=== PATIENT | female | born 1985 | race Caucasian/White ===

== ENCOUNTER 2016-11-17 13:26 | Emergency (ER) | payer OTHER ==
--- NOTE | 2016-11-17 15:52 | ED ORDER SUMMARY ---
..... Patient: ANDREW BERGMAN OrderSheet [facility] VisitID: [id number] [address] [place] [address] 31y, F Registration Date/Time: 11/17/2016 ORDER SHEET Weight: 81.6 kg (estimated) Allergies: No Known Drug Allergy GENERAL ORDERS: CBC w Diff Urgent (13:37 11/17/2016 EKoroleva P.A.-C) (Ack 13:39 PWeiler ER Tech1) (15:34 HKone R.N.) CMP Urgent (13:37 11/17/2016 EKoroleva P.A.-C) (Ack 13:39 PWeiler ER Tech1) (13:42 PWeiler ER Tech1) UA-Culture if indicated Urgent (13:37 11/17/2016 EKoroleva P.A.-C) (Ack 13:39 PWeiler ER Tech1) (15:34 HKone R.N.) Urine Urgent (13:37 11/17/2016 EKoroleva P.A.-C) (Ack 13:39 PWeiler ER Tech1) (15:34 HKone R.N.) Urine Drug Screen Urgent (13:37 11/17/2016 EKoroleva P.A.-C) (Ack 13:39 PWeiler ER Tech1) (15:34 HKone R.N.) Ethyl Alcohol Urgent (13:37 11/17/2016 EKoroleva P.A.-C) (Ack 13:39 PWeiler ER Tech1) (15:34 HKone R.N.) Lipase Urgent (13:37 11/17/2016 EKoroleva P.A.-C) (Ack 13:39 PWeiler ER Tech1) (15:34 HKone R.N.) MEDICATION ORDERS: IV FLUIDS: IV NS : initial bolus 1000 mL (1000 mL/hr), then 1000 mL/hr for X1 (NOW); Elie (13:37 11/17/2016 EKoroleva P.A.-C) (13:54 HKone R.N.) Zofran IV 4 mg (NOW) (13:37 11/17/2016 Edwar Betancourt) (Ack 13:54 HKone R.N.) (13:59 HKone R.N.) Ativan IV 1 mg (HIGH ALERT MEDICATION, NOW) (16:02 11/17/2016 Edwar Betancourt) (Ack 16:03 HKone R.N.) (16:09 HKone R.N.) ORDER SHEET NOTES: [Electronically signed by Julissa Pastrana R.N. (16:28 11/17/2016)] [Electronically signed by Karen Ortega P.A.-C (16:40 11/17/2016)] [Electronically locked/signed by Julissa Pastrana R.N. (16:28 11/17/2016)]
--- NOTE | 2016-11-17 15:52 | ED CLINICAL REPORT ---
Clinical Report - Physicians/Mid Levels Located Within [facility] [address] [place] [address] 11/17/2016 13:30 Patient: ANDREW BERGMAN Time Seen: 13:37 Apr 17 2016. Arrived- By ambulance. Historian- patient and EMS personnel. HISTORY OF PRESENT ILLNESS Chief Complaint: NAUSEA and VOMITING. This started 3 days and is still present. No loss of appetite or weight loss. (patient presents with nausea, some sore throat feeling off, reports she has withdrawal's. Has been drinking heavily over the last 3 days with decreased appetite and hydration. Patient usually also drinks a few drinks daily. Drinking tequila and hard alcohol this weekend, multiple bottles.). REVIEW OF SYSTEMS No fever, sore throat, sinus drainage, cough or difficulty breathing. No nausea, vomiting, diarrhea or chills. No difficulty with ambulation. All systems otherwise negative, except as recorded above. SOCIAL HISTORY Never smoker. Heavy alcohol use; consumes liquor daily and wine daily. 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 History of drug use: marijuana. Not an IV drug user. ADDITIONAL NOTES The nursing notes have been reviewed. PHYSICAL EXAM Vital Signs: 11/17/2016 13:15 BP: 145/91. HR: 107. RR: 18. O2 saturation: 100%. Temp: 98.3 F. Pain level now: 0/10. Appearance: Alert. No mild distress. ENT: Ears normal. Nose normal. Pharynx normal. No nasal discharge. Neck: Normal inspection. No carotid bruit. CVS: Normal heart rate and rhythm. Heart sounds normal. Respiratory: No respiratory distress. Breath sounds normal. Abdomen: No visible injury. Soft. Bowel sounds normal. No abdominal tenderness. The bowel sounds are not abnormal. Skin: Skin warm. Normal skin color. Neuro: Oriented X 3. LABS, X-RAYS, AND EKG Laboratory Tests: UA-Culture if indicated: (BERENICE: 11/17/2016 15:05) ( MsgRcvd 11/17/2016 15:31) Final results Test Result Flag Units (Reference) URINE COLOR YELLOW URINE APPEARANCE CLEAR URINE GLUCOSE NEGATIVE (NEGATIVE) URINE BILIRUBIN NEGATIVE (NEGATIVE) URINE KETONE 2+ (NEGATIVE) URINE SPECIFIC GRAVITY 1.010 (1.010-1.030) URINE PH 6.5 (5.0-8.0) URINE PROTEIN NEGATIVE (NEGATIVE) URINE UROBILINOGEN 0.2 EU/dL (0.2-1.0) URINE NITRITE NEGATIVE (NEGATIVE) URINE BLOOD TRACE-LYSED (NEGATIVE) URINE LEUK ESTERASE NEGATIVE (NEGATIVE) URINE RBC RARE rbc/hpf (0-1) URINE WBC 0-1 wbc/hpf (0-1) URINE EPITHELIAL CELLS 0-1 EPI/hpf (0-5) URINE BACTERIA TRACE (<1+) (NONE SEEN) URINE COMMENT CULT NOT INDICATED URINE CULTURES ARE SET-UP BASED ON THE FOLLOWING CRITERIA:POSITIVE NITRITEPOSITIVE LEUKOCYTE ESTERASEGREATER THAN 10 WHITE BLOOD CELLSMODERATE (2+) OR GREATER BACTERIA Urine: (BERENICE: 11/17/2016 15:05) ( [facility] 11/17/2016 15:21) Final results Test Result Flag Units (Reference) URINE NEGATIVE CBC w Diff: (BERENICE: 11/17/2016 13:30) ( [facility] 11/17/2016 14:04) Final results Test Result Flag Units (Reference) WHITE BLOOD COUNT 6.9 K/uL (4.5-11.5) RED BLOOD COUNT 4.55 M/uL (4.00-5.20) HEMOGLOBIN 12.9 gm/dL (12.0-16.0) HEMATOCRIT 39.2 % (36.0-46.0) MEAN CELL VOLUME 86 fL (80-100) MEAN CORPUSCULAR HGB 28 pg (26-34) MEAN CORPUSCULAR HGB CONC 33 g/dL (31-37) RED CELL DISTRIBUTION WIDTH 15.2 H % (11.6-14.8) PLATELET COUNT 280 K/uL (150-400) NEUTROPHIL % 76.0 H % (50-75) LYMPH % 16.6 L % (25-40) MONO % 5.8 % (3-14) EOSINOPHIL % 0.8 % (0-4) BASOPHIL % 0.8 % (0-2) Urine Drug Screen: (BERENICE: 11/17/2016 15:05) ( MsgRcvd 11/17/2016 15:27) Final results Test Result Flag Units (Reference) AMPHETAMINE/METHAMPHETAMINE NEGATIVE (NEGATIVE) BARBITURATE NEGATIVE (NEGATIVE) BENZODIAZEPINE NEGATIVE (NEGATIVE) CANNABINOID NEGATIVE (NEGATIVE) COCAINE NEGATIVE (NEGATIVE) ECSTASY NEGATIVE (NEGATIVE) METHADONE NEGATIVE (NEGATIVE) OPIATE NEGATIVE (NEGATIVE) The urine drug screen is a qualitative screening test fordrug overdose and abuse. All screen results should beconsidered as presumptive.Drugs screened for are as follows:BenzodiazepinesCocaineAmphetamines/MetamphetaminesTHC (Tetrahydrocannabinol)OpiatesBarbituratesEcstasyMethadonePositive results are unconfirmed. For confirmation, notifythe lab for the specimen to be sent to the reference lab.All confirmations must be performed by a differentmethodology.The ingestion of natural herbal and plant productscontaining Ephedra/Ephedra metabolites can produce in urineone or more substances capable of cross reacting withamphetamine/methamphetamine immunoassays. These testsprovide a preliminary result only. A more specificalternative chemical method must be used to obtain aconfirmed analytical result. CMP: (BERENICE: 11/17/2016 13:30) ( MsgRcvd 11/17/2016 14:02) Final results Test Result Flag Units (Reference) GLUCOSE 104 mg/dL (70-110) BUN 11 mg/dL (7-18) CREATININE 1.0 mg/dL (0.6-1.3) Estimated GFR >60 mL/min Estimated GFR- >60 mL/min Note: Persistent reduction over 3 months in eGFR<60 mL/min/1.73 m2 defines CKD. Patients with eGFR values>=60 mL/min/1.73 m2 may also have CKD if evidence ofpersistent proteinuria. Additional information may be foundat www.kidney.org. SODIUM 141 mmol/L (136-145) POTASSIUM 3.6 mmol/L (3.5-5.1) CHLORIDE 105 mmol/L (98-107) CARBON DIOXIDE 25 mmol/L (21-32) CALCIUM 9.1 mg/dL (8.5-10.1) TOTAL PROTEIN 7.6 g/dL (6.4-8.2) ALBUMIN 3.8 g/dL (3.3-5.0) BILIRUBIN, TOTAL 0.7 mg/dL (0.0-1.0) ALKALINE PHOSPHATASE 57 U/L (46-116) AST (SGOT) 122 H U/L (15-37) ALT (SGPT) 109 H U/L (12-78) LIPASE 75 U/L (73-393) ETHYL ALCOHOL <3 L mg/dL (3-10) . PROGRESS AND PROCEDURES Course of Care: patient here in the ear is very stable. No emesis. No tremors, no signs of seizure. Patient is with history of alcohol. Given options nerves II counseling, has an appointment tomorrow she reports. Given a work note. Given small quantity of prescription for benzo. Family at bedside. Signs of dehydration, otherwise electrolytes are stable. She was rehydrated here in the ER with 2 L of fluid. Patient is stable. Symptoms better. Patient/family counseled. Disposition: Discharged. CLINICAL IMPRESSION Mild dehydration Elevated LFT. INSTRUCTIONS Do not work today. Warnings: Further evaluation is necessary. Prescription Medications: Zofran (orally disintegrating tablets) 4 mg: take 1 orally every 6 hours for 3 days as needed for nausea. Dispense ten (10). No refill. Substitution is permissible. Librium 10 mg: take 1 orally every 8 hours for 3 days as needed for anxiety. Dispense ten (10). No refill. Substitution is permissible. (Electronically signed by Karen Ortega P.A.-C 11/17/2016 16:40)
--- NOTE | 2016-11-17 15:52 | ED CLINICAL REPORT ---
Clinical Report - Physicians/Mid Levels [facility] [address] [place] [address] 11/17/2016 13:30 Patient: ANDREW BERGMAN Time Seen: 13:37 Apr 17 2016. Arrived- By ambulance. Historian- patient and EMS personnel. HISTORY OF PRESENT ILLNESS Chief Complaint: NAUSEA and VOMITING. This started 3 days and is still present. No loss of appetite or weight loss. (patient presents with nausea, some sore throat feeling off, reports she has withdrawal's. Has been drinking heavily over the last 3 days with decreased appetite and hydration. Patient usually also drinks a few drinks daily. Drinking tequila and hard alcohol this weekend, multiple bottles.). REVIEW OF SYSTEMS No fever, sore throat, sinus drainage, cough or difficulty breathing. No nausea, vomiting, diarrhea or chills. No difficulty with ambulation. All systems otherwise negative, except as recorded above. SOCIAL HISTORY Never smoker. Heavy alcohol use; consumes liquor daily and wine daily. 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 History of drug use: marijuana. Not an IV drug user. ADDITIONAL NOTES The nursing notes have been reviewed. PHYSICAL EXAM Vital Signs: 11/17/2016 13:15 BP: 145/91. HR: 107. RR: 18. O2 saturation: 100%. Temp: 98.3 F. Pain level now: 0/10. Appearance: Alert. No mild distress. ENT: Ears normal. Nose normal. Pharynx normal. No nasal discharge. Neck: Normal inspection. No carotid bruit. CVS: Normal heart rate and rhythm. Heart sounds normal. Respiratory: No respiratory distress. Breath sounds normal. Abdomen: No visible injury. Soft. Bowel sounds normal. No abdominal tenderness. The bowel sounds are not abnormal. Skin: Skin warm. Normal skin color. Neuro: Oriented X 3. LABS, X-RAYS, AND EKG Laboratory Tests: UA-Culture if indicated: (BERENICE: 11/17/2016 15:05) ( MsgRcvd 11/17/2016 15:31) Final results Test Result Flag Units (Reference) URINE COLOR YELLOW URINE APPEARANCE CLEAR URINE GLUCOSE NEGATIVE (NEGATIVE) URINE BILIRUBIN NEGATIVE (NEGATIVE) URINE KETONE 2+ (NEGATIVE) URINE SPECIFIC GRAVITY 1.010 (1.010-1.030) URINE PH 6.5 (5.0-8.0) URINE PROTEIN NEGATIVE (NEGATIVE) URINE UROBILINOGEN 0.2 EU/dL (0.2-1.0) URINE NITRITE NEGATIVE (NEGATIVE) URINE BLOOD TRACE-LYSED (NEGATIVE) URINE LEUK ESTERASE NEGATIVE (NEGATIVE) URINE RBC RARE rbc/hpf (0-1) URINE WBC 0-1 wbc/hpf (0-1) URINE EPITHELIAL CELLS 0-1 EPI/hpf (0-5) URINE BACTERIA TRACE (<1+) (NONE SEEN) URINE COMMENT CULT NOT INDICATED URINE CULTURES ARE SET-UP BASED ON THE FOLLOWING CRITERIA:POSITIVE NITRITEPOSITIVE LEUKOCYTE ESTERASEGREATER THAN 10 WHITE BLOOD CELLSMODERATE (2+) OR GREATER BACTERIA Urine: (BERENICE: 11/17/2016 15:05) ( [facility] 11/17/2016 15:21) Final results Test Result Flag Units (Reference) URINE NEGATIVE CBC w Diff: (BERENICE: 11/17/2016 13:30) [facility] Final results Test Result Flag Units (Reference) WHITE BLOOD COUNT 6.9 K/uL (4.5-11.5) RED BLOOD COUNT 4.55 M/uL (4.00-5.20) HEMOGLOBIN 12.9 gm/dL (12.0-16.0) HEMATOCRIT 39.2 % (36.0-46.0) MEAN CELL VOLUME 86 fL (80-100) MEAN CORPUSCULAR HGB 28 pg (26-34) MEAN CORPUSCULAR HGB CONC 33 g/dL (31-37) RED CELL DISTRIBUTION WIDTH 15.2 H % (11.6-14.8) PLATELET COUNT 280 K/uL (150-400) NEUTROPHIL % 76.0 H % (50-75) LYMPH % 16.6 L % (25-40) MONO % 5.8 % (3-14) EOSINOPHIL % 0.8 % (0-4) BASOPHIL % 0.8 % (0-2) Urine Drug Screen: (BERENICE: 11/17/2016 15:05) ( MsgRcvd 11/17/2016 15:27) Final results Test Result Flag Units (Reference) AMPHETAMINE/METHAMPHETAMINE NEGATIVE (NEGATIVE) BARBITURATE NEGATIVE (NEGATIVE) BENZODIAZEPINE NEGATIVE (NEGATIVE) CANNABINOID NEGATIVE (NEGATIVE) COCAINE NEGATIVE (NEGATIVE) ECSTASY NEGATIVE (NEGATIVE) METHADONE NEGATIVE (NEGATIVE) OPIATE NEGATIVE (NEGATIVE) The urine drug screen is a qualitative screening test fordrug overdose and abuse. All screen results should beconsidered as presumptive.Drugs screened for are as follows:BenzodiazepinesCocaineAmphetamines/MetamphetaminesTHC (Tetrahydrocannabinol)OpiatesBarbituratesEcstasyMethadonePositive results are unconfirmed. For confirmation, notifythe lab for the specimen to be sent to the reference lab.All confirmations must be performed by a differentmethodology.The ingestion of natural herbal and plant productscontaining Ephedra/Ephedra metabolites can produce in urineone or more substances capable of cross reacting withamphetamine/methamphetamine immunoassays. These testsprovide a preliminary result only. A more specificalternative chemical method must be used to obtain aconfirmed analytical result. CMP: (BERENICE: 11/17/2016 13:30) ( MsgRcvd 11/17/2016 14:02) Final results Test Result Flag Units (Reference) GLUCOSE 104 mg/dL (70-110) BUN 11 mg/dL (7-18) CREATININE 1.0 mg/dL (0.6-1.3) Estimated GFR >60 mL/min Estimated GFR- >60 mL/min Note: Persistent reduction over 3 months in eGFR<60 mL/min/1.73 m2 defines CKD. Patients with eGFR values>=60 mL/min/1.73 m2 may also have CKD if evidence ofpersistent proteinuria. Additional information may be foundat www.kidney.org. SODIUM 141 mmol/L (136-145) POTASSIUM 3.6 mmol/L (3.5-5.1) CHLORIDE 105 mmol/L (98-107) CARBON DIOXIDE 25 mmol/L (21-32) CALCIUM 9.1 mg/dL (8.5-10.1) TOTAL PROTEIN 7.6 g/dL (6.4-8.2) ALBUMIN 3.8 g/dL (3.3-5.0) BILIRUBIN, TOTAL 0.7 mg/dL (0.0-1.0) ALKALINE PHOSPHATASE 57 U/L (46-116) AST (SGOT) 122 H U/L (15-37) ALT (SGPT) 109 H U/L (12-78) LIPASE 75 U/L (73-393) ETHYL ALCOHOL <3 L mg/dL (3-10) . PROGRESS AND PROCEDURES Course of Care: patient here in the ear is very stable. No emesis. No tremors, no signs of seizure. Patient is with history of alcohol. Given options nerves II counseling, has an appointment tomorrow she reports. Given a work note. Given small quantity of prescription for benzo. Family at bedside. Signs of dehydration, otherwise electrolytes are stable. She was rehydrated here in the ER with 2 L of fluid. Patient is stable. Symptoms better. Patient/family counseled. Disposition: Discharged. CLINICAL IMPRESSION Mild dehydration Elevated LFT. INSTRUCTIONS Do not work today. Warnings: Further evaluation is necessary. Prescription Medications: Zofran (orally disintegrating tablets) 4 mg: take 1 orally every 6 hours for 3 days as needed for nausea. Dispense ten (10). No refill. Substitution is permissible. Librium 10 mg: take 1 orally every 8 hours for 3 days as needed for anxiety. Dispense ten (10). No refill. Substitution is permissible. (Electronically signed by Karen Ortega P.A.-C 11/17/2016 16:40)
--- NOTE | 2016-11-17 15:52 | ED NURSING NOTES ---
Clinical Report - Nurses [facility] [address] [place] [address] 11/17/2016 13:30 Patient: ANDREW BERGMAN TRIAGE Triage time 1315. Acuity: LEVEL 3. Chief Complaint: (alcohol withdrawal). PERLITA COMA SCORE: Perlita Coma Scale: 15- eyes open spontaneously (4); best verbal response- oriented x 4 (5); best motor response- obeys commands (6). --13:50 Julissa Pastrana R.N. 13:15 11/17/16. BP: 145/91. HR: 107. RR: 18 (unlabored). O2 saturation: 100% on room air. Temp: 98.3 F (oral). Pain level now: 0/10. --13:50 Julissa Pastrana R.N. Weight: 81.6 kg estimated. Height/Length: 67 inches Per Patient. BMI: 28.2. --13:30 Julissa Pastrana R.N. Medications None. --13:47 Julissa Pastrana R.N. Allergies No Known Drug Allergy. --13:47 Julissa Pastrana R.N. Medication/allergy information source: the patient. --13:50 Julissa Pastrana R.N. History Arrived by EMS. Historian: EMS and patient. Unaccompanied. Primary physician (none). ( pt c/o alcohol withdrawal - confusion, heart racing, just not feeling right. pt states she drank a fifth a day of either tequila or vodka, along with beer and wine. pt states this has been going on over the past 3-4 weekends. pt states she drinks several glasses of wine every evening after work. pt states she doesn't remember the last time she had not drank.). This started today. Treatment INSURANCE OPERATIONS REP: None. PAST MEDICAL HX: Last normal menstrual period- 2 days ago. SOCIAL HX: Never smoker. Heavy alcohol use; consumes a large amount of beer weekly, three liquor bottles weekly and wine by the bottle daily. Last drink was less than 24 hours ago. History of occasional drug use: marijuana. ABUSE ASSESSMENT: No report of abuse. FALL RISK ASSESSMENT: Fall risk assessment completed. No fall risk identified. NUTRITIONAL RISK ASSESSMENT: The nutritional risk assessment revealed no deficiencies. FUNCTIONAL ASSESSMENT: Functional assessment: no impairments noted. LEARNING NEEDS ASSESSMENT: The learning needs assessment revealed no barriers. --13:50 Julissa Pastrana R.N. PROBLEMS: no known problems. ADDITIONAL SURGERIES: no known surgeries. Interventions ID band on patient. To treatment room. --13:50 Julissa Pastrana R.N. PHYSICAL ASSESSMENT 13:35. To room via stretcher. GENERAL / NEURO / PSYCH: Alert. Oriented X 4. Appears anxious. HEENT: Pupils equal, round and reactive to light. No facial asymmetry noted. Mucous membranes are pink. RESPIRATORY: Respirations not labored. GI / : Abdomen soft and nontender. SKIN: Skin intact. Skin is warm and dry. Normal skin turgor. --13:52 Julissa Pastrana R.N. NURSING PROGRESS NOTES 13:20. Pulse oximeter and NIBP monitor placed on patient. Patient gowned. Head of bed elevated. Reassurance given. Two patient identifiers checked. Call light placed in reach. Side rails up x 2. Bed placed in lowest position. Brakes of bed on. Patient ready for evaluation. --13:51 Julissa Pastrana R.N. 13:30 11/17/2016 Site #1 started via IV in the left antecubital space with an 20g angiocath, with aseptic technique; one attempt. Blood drawn: rainbow set. Labeled in the presence of the patient and sent to the lab. Saline lock flushed with 10 mL saline. --13:53 Julissa Pastrana R.N. 13:40 11/17/2016 Started bag #1 1000 mL IV Fluids IV NS (Saline); at 999 mL/hr over 1 hour(s) via site #1 via IV pump. Allergies verified and confirmed 5 rights. IV patency established. IV site checked: no pain, redness, or swelling. IV flushed thoroughly pre- and post-medication administration. --13:54 Julissa Pastrana R.N. 13:59 11/17/2016 Zofran (Ondansetron HCl) IVP 4 mg given over 1 minute(s) via site #1. Allergies verified and confirmed 5 rights. IV patency established. IV site checked: no pain, redness, or swelling. IV flushed thoroughly pre- and post-medication administration. IVP given by RN. --13:59 Julissa Pastrana R.N. 14:30 pt resting, no resp distress noted. --14:45 Julissa Pastrana R.N. 14:00 11/17/16. BP: 127/72. HR: 103 (regular). RR: 18 (unlabored). O2 saturation: 100% on room air. Pain level now: 0/10. --15:01 Julissa Pastrana R.N. <<STRICKEN ENTRY-- 14:30 11/17/2016 Zofran IVP Response: pain is gone now. --15:01 Julissa Pastrana R.N. --END STRIKE>> Change to Details. --15:02 Julissa Pastrana R.N. 14:30 11/17/2016 Zofran IVP Response: the patient feels better. (pt denies nausea now). --15:02 Julissa Pastrana R.N. 14:40 11/17/2016 IV Fluids IV NS Discontinued: bag #1 completed. Total amount infused: 1000 ml mL. IV patency established. IV site checked: no pain, redness, or swelling. IV flushed thoroughly. --15:06 Julissa Pastrana R.N. pt assisted up to bathroom. --15:06 Julissa Pastrana R.N. 15:10 pt gave urine specimen, labeled and sent to lab. --15:27 Julissa Pastrana R.N. 16:09 11/17/2016 Ativan (LORazepam) IVP 1 mg given over 1 minute(s) via site #1. Allergies verified, confirmed 5 rights and sedative warning given to the patient and patient's plant breeder scientist. IV patency established. IV site checked: no pain, redness, or swelling. IV flushed thoroughly pre- and post-medication administration. IVP given by PA. --16:09 Julissa Pastrana R.N. 15:30 pt waiting for lab results, pt's boyfriend at bedside. pt feeling much better other than a slight headache. --16:13 Julissa Pastrana R.N. 16:05 attempted to send pt home, she appears anxious on dc. notified PA. received orders. --16:14 Julissa Pastrana R.N. 15:00 11/17/16. BP: 131/61. HR: 97. RR: 18 (unlabored). O2 saturation: 100% on room air. Pain level now: 0/10. --16:25 Julissa Pastrana R.N. DISPOSITION / DISCHARGE Departure time: 1625. Condition at departure: improved. No learning barriers present. Discharge instructions provided and reviewed with the patient. Reviewed medication(s). Prescription(s) given to the patient (Librium, zofran). Patient verbalized understanding. Written instructions provided in [place]. The patient was discharged by the physician department assistant. She was discharged home and accompanied by plant breeder scientist. She left the Emergency Department ambulatory and via private vehicle. Game Artist driving. Medication list reviewed and validated with the patient. --16:27 Julissa Pastrana R.N. 16:25 11/17/16. BP: 134/75. HR: 86. RR: 18 (unlabored). O2 saturation: 100% on room air. Temp: deferred. Pain level now: 0/10. --16:27 Julissa Pastrana R.N. 16:25 11/17/2016 Site #1 removed upon discharge. Bandage applied. --16:27 Julissa Pastrana R.N. Locked/Released at 11/17/2016 16:28 by Julissa Pastrana R.N.
--- NOTE | 2016-11-17 15:52 | ED ORDER SUMMARY ---
..... Patient: ANDREW BERGMAN OrderSheet [facility] VisitID: [id number] [address] [place] [address] 31y, F Registration Date/Time: 11/17/2016 ORDER SHEET Weight: 81.6 kg (estimated) Allergies: No Known Drug Allergy GENERAL ORDERS: CBC w Diff Urgent (13:37 11/17/2016 EKoroleva P.A.-C) (Ack 13:39 PWeiler ER Tech1) (15:34 HKone R.N.) CMP Urgent (13:37 11/17/2016 EKoroleva P.A.-C) (Ack 13:39 PWeiler ER Tech1) (13:42 PWeiler ER Tech1) UA-Culture if indicated Urgent (13:37 11/17/2016 EKoroleva P.A.-C) (Ack 13:39 PWeiler ER Tech1) (15:34 HKone R.N.) Urine Urgent (13:37 11/17/2016 EKoroleva P.A.-C) (Ack 13:39 PWeiler ER Tech1) (15:34 HKone R.N.) Urine Drug Screen Urgent (13:37 11/17/2016 EKoroleva P.A.-C) (Ack 13:39 PWeiler ER Tech1) (15:34 HKone R.N.) Ethyl Alcohol Urgent (13:37 11/17/2016 EKoroleva P.A.-C) (Ack 13:39 PWeiler ER Tech1) (15:34 HKone R.N.) Lipase Urgent (13:37 11/17/2016 EKoroleva P.A.-C) (Ack 13:39 PWeiler ER Tech1) (15:34 HKone R.N.) MEDICATION ORDERS: IV FLUIDS: IV NS : initial bolus 1000 mL (1000 mL/hr), then 1000 mL/hr for X1 (NOW); Elie (13:37 11/17/2016 EKoroleva P.A.-C) (13:54 HKone R.N.) Zofran IV 4 mg (NOW) (13:37 11/17/2016 Edwar Betancourt) (Ack 13:54 HKone R.N.) (13:59 HKone R.N.) Ativan IV 1 mg (HIGH ALERT MEDICATION, NOW) (16:02 11/17/2016 Edwar Betancourt) (Ack 16:03 HKone R.N.) (16:09 HKone R.N.) ORDER SHEET NOTES: [Electronically signed by Julissa Pastrana R.N. (16:28 11/17/2016)] [Electronically signed by Karen Ortega P.A.-C (16:40 11/17/2016)] [Electronically locked/signed by Julissa Pastrana R.N. (16:28 11/17/2016)]
--- NOTE | 2016-11-17 15:52 | ED NURSING NOTES ---
Clinical Report - Nurses [facility] [address] [place] [address] 11/17/2016 13:30 Patient: ANDREW BERGMAN TRIAGE Triage time 1315. Acuity: LEVEL 3. Chief Complaint: (alcohol withdrawal). PERLITA COMA SCORE: Perlita Coma Scale: 15- eyes open spontaneously (4); best verbal response- oriented x 4 (5); best motor response- obeys commands (6). --13:50 Julissa Pastrana R.N. 13:15 11/17/16. BP: 145/91. HR: 107. RR: 18 (unlabored). O2 saturation: 100% on room air. Temp: 98.3 F (oral). Pain level now: 0/10. --13:50 Julissa Pastrana R.N. Weight: 81.6 kg estimated. Height/Length: 67 inches Per Patient. BMI: 28.2. --13:30 Julissa Pastrana R.N. Medications None. --13:47 Julissa Pastrana R.N. Allergies No Known Drug Allergy. --13:47 Julissa Pastrana R.N. Medication/allergy information source: the patient. --13:50 Julissa Pastrana R.N. History Arrived by EMS. Historian: EMS and patient. Unaccompanied. Primary physician (none). ( pt c/o alcohol withdrawal - confusion, heart racing, just not feeling right. pt states she drank a fifth a day of either tequila or vodka, along with beer and wine. pt states this has been going on over the past 3-4 weekends. pt states she drinks several glasses of wine every evening after work. pt states she doesn't remember the last time she had not drank.). This started today. Treatment FRONT OFFICE SPEC: None. PAST MEDICAL HX: Last normal menstrual period- 2 days ago. SOCIAL HX: Never smoker. Heavy alcohol use; consumes a large amount of beer weekly, three liquor bottles weekly and wine by the bottle daily. Last drink was less than 24 hours ago. History of occasional drug use: marijuana. ABUSE ASSESSMENT: No report of abuse. FALL RISK ASSESSMENT: Fall risk assessment completed. No fall risk identified. NUTRITIONAL RISK ASSESSMENT: The nutritional risk assessment revealed no deficiencies. FUNCTIONAL ASSESSMENT: Functional assessment: no impairments noted. LEARNING NEEDS ASSESSMENT: The learning needs assessment revealed no barriers. --13:50 Julissa Pastrana R.N. PROBLEMS: no known problems. ADDITIONAL SURGERIES: no known surgeries. Interventions ID band on patient. To treatment room. --13:50 Julissa Pastrana R.N. PHYSICAL ASSESSMENT 13:35. To room via stretcher. GENERAL / NEURO / PSYCH: Alert. Oriented X 4. Appears anxious. HEENT: Pupils equal, round and reactive to light. No facial asymmetry noted. Mucous membranes are pink. RESPIRATORY: Respirations not labored. GI / : Abdomen soft and nontender. SKIN: Skin intact. Skin is warm and dry. Normal skin turgor. --13:52 Julissa Pastrana R.N. NURSING PROGRESS NOTES 13:20. Pulse oximeter and NIBP monitor placed on patient. Patient gowned. Head of bed elevated. Reassurance given. Two patient identifiers checked. Call light placed in reach. Side rails up x 2. Bed placed in lowest position. Brakes of bed on. Patient ready for evaluation. --13:51 Julissa Pastrana R.N. 13:30 11/17/2016 Site #1 started via IV in the left antecubital space with an 20g angiocath, with aseptic technique; one attempt. Blood drawn: rainbow set. Labeled in the presence of the patient and sent to the lab. Saline lock flushed with 10 mL saline. --13:53 Julissa Pastrana R.N. 13:40 11/17/2016 Started bag #1 1000 mL IV Fluids IV NS (Saline); at 999 mL/hr over 1 hour(s) via site #1 via IV pump. Allergies verified and confirmed 5 rights. IV patency established. IV site checked: no pain, redness, or swelling. IV flushed thoroughly pre- and post-medication administration. --13:54 Julissa Pastrana R.N. 13:59 11/17/2016 Zofran (Ondansetron HCl) IVP 4 mg given over 1 minute(s) via site #1. Allergies verified and confirmed 5 rights. IV patency established. IV site checked: no pain, redness, or swelling. IV flushed thoroughly pre- and post-medication administration. IVP given by RN. --13:59 Julissa Pastrana R.N. 14:30 pt resting, no resp distress noted. --14:45 Julissa Pastrana R.N. 14:00 11/17/16. BP: 127/72. HR: 103 (regular). RR: 18 (unlabored). O2 saturation: 100% on room air. Pain level now: 0/10. --15:01 Julissa Pastrana R.N. <<STRICKEN ENTRY-- 14:30 11/17/2016 Zofran IVP Response: pain is gone now. --15:01 Julissa Pastrana R.N. --END STRIKE>> Change to Details. --15:02 Julissa Pastrana R.N. 14:30 11/17/2016 Zofran IVP Response: the patient feels better. (pt denies nausea now). --15:02 Julissa Pastrana R.N. 14:40 11/17/2016 IV Fluids IV NS Discontinued: bag #1 completed. Total amount infused: 1000 ml mL. IV patency established. IV site checked: no pain, redness, or swelling. IV flushed thoroughly. --15:06 Julissa Pastrana R.N. pt assisted up to bathroom. --15:06 Julissa Pastrana R.N. 15:10 pt gave urine specimen, labeled and sent to lab. --15:27 Julissa Pastrana R.N. 16:09 11/17/2016 Ativan (LORazepam) IVP 1 mg given over 1 minute(s) via site #1. Allergies verified, confirmed 5 rights and sedative warning given to the patient and patient's web methods developer. IV patency established. IV site checked: no pain, redness, or swelling. IV flushed thoroughly pre- and post-medication administration. IVP given by PA. --16:09 Julissa Pastrana R.N. 15:30 pt waiting for lab results, pt's boyfriend at bedside. pt feeling much better other than a slight headache. --16:13 Julissa Pastrana R.N. 16:05 attempted to send pt home, she appears anxious on dc. notified PA. received orders. --16:14 Julissa Pastrana R.N. 15:00 11/17/16. BP: 131/61. HR: 97. RR: 18 (unlabored). O2 saturation: 100% on room air. Pain level now: 0/10. --16:25 Julissa Pastrana R.N. DISPOSITION / DISCHARGE Departure time: 1625. Condition at departure: improved. No learning barriers present. Discharge instructions provided and reviewed with the patient. Reviewed medication(s). Prescription(s) given to the patient (Librium, zofran). Patient verbalized understanding. Written instructions provided in Belgian. The patient was discharged by the physician production administrative assistant. She was discharged home and accompanied by web methods developer. She left the Emergency Department ambulatory and via private vehicle. Pulp Tester driving. Medication list reviewed and validated with the patient. --16:27 Julissa Pastrana R.N. 16:25 11/17/16. BP: 134/75. HR: 86. RR: 18 (unlabored). O2 saturation: 100% on room air. Temp: deferred. Pain level now: 0/10. --16:27 Julissa Pastrana R.N. 16:25 11/17/2016 Site #1 removed upon discharge. Bandage applied. --16:27 Julissa Pastrana R.N. Locked/Released at 11/17/2016 16:28 by Julissa Pastrana R.N.
--- NOTE | 2016-11-17 16:41 | ED DISCHARGE INSTRUCTIONS ---
Patient: ANDREW BERGMAN General Instructions [facility] VisitID: [id number] [address] [place] [address] 31y, F Registration Date/Time: 11/17/2016 Mild dehydration Elevated LFT. INSTRUCTIONS Do not work today. Warnings: Further evaluation is necessary. Prescription Medications: Zofran (orally disintegrating tablets) 4 mg: take 1 orally every 6 hours for 3 days as needed for nausea. Dispense ten (10). No refill. Substitution is permissible. Librium 10 mg: take 1 orally every 8 hours for 3 days as needed for anxiety. Dispense ten (10). No refill. Substitution is permissible. ADDITIONAL INFORMATION Alcohol Withdrawal Alcohol withdrawal symptoms occur if you have been drinking steadily for at least several days, and your body gets used to the effect of alcohol. When you suddenly stop drinking (or, even just cut down your daily intake but continue to drink), you may develop alcohol withdrawal, also called the The usual symptoms last 3-4 days and include nervousness, shakiness, nausea, sweating, sleeplessness. In severe cases hallucinations (seeing things that are not there) and seizures can occur. Home Care: You will need plenty of rest and fluids over the next several days. Eat regular meals. Of course, do not drink any more alcohol. During this time, it is best that you stay with family or friends who can help and support you. You can also admit yourself to a residential detox program. Do not drive until all symptoms are gone and you are feeling better. If you were given sedative medication to reduce your symptoms, do not take it more often than prescribed and never take it with alcohol. Follow Up: Once you have gone through the withdrawal symptoms, you have fought half of the mckeon. To avoid the risk of returning to your previous drinking pattern, it is essential that you get follow-up support and treatment. Alcoholics Anonymous offers support through a self-help fellowship. There are no dues or fees. See the Yellow Pages and call for time and place of meetings. www.aa.org Al-Anon offers support to families of alcohol users. 439.733.7820 www.al-anon.org National [place] On Alcoholism And Drug Dependence 414-624-4724 www.ncadd.org Residential alcohol detox programs are available. Check the Yellow Pages under Drug Abuse & Treatment Centers. Get Prompt Medical Attention if any of the following occur: Severe shakiness Hallucinations Seizure Fever over 100.5 F (38.0 C) oral Headache, confusion, extreme drowsiness, inability to awaken Increasing upper abdominal pain Repeated vomiting or vomiting blood Dehydration (Adult) Dehydration occurs when your body loses too much fluid. This may be the result of vomiting a lot or from diarrhea,sweating a lot, or a high fever. It may also happen if you dont drink enough fluid when youre sick. Misuse of diuretics (water pills) can also be a cause. Symptoms include thirst and feeling dizzy, weak, fatigued, or very drowsy. The diet described below is usually enough to treat most cases. Sometimes you may needmedicine. Home Care Follow these guidelines for home care: Drink at least 12 8-ounce glasses of fluid every day to overcome the dehydration. Fluid may include water; orange juice; lemonade; apple, grape, and cranberry juice; clear fruit drinks; electrolyte replacement and sports drinks; and teas and coffee without caffeine. If you have been diagnosed with a kidney disease, ask your doctor how much and what types of fluids you should drink to prevent dehydration. If you have kidney disease, drinking too much fluid can cause it build up in the your body and be dangerous to your health. If you have fever, muscle aching, or headache from a viral syndrome, you may useacetaminophen or ibuprofen, unless another medicine was prescribed for this.If you have chronic liver or kidney disease or ever had a stomach ulcer or GI bleeding, talk with your doctor before using these medicines. Don't take aspirin if you are younger than 18 and are ill with a fever.Aspirin raises the chance forsevere liver injury. Follow-up care Follow up with your health care provider if you don't get better in the next 24 to 48 hours. When to seek medical care Get prompt medical attention if any of theseoccur: Continued vomiting (cant keep liquids down) Frequent diarrhea (more than 5 times a day); blood (red or black color) or mucus in diarrhea Blood in vomit or stool Swollen abdomen or increasing abdominal pain Weakness, dizziness, or fainting Unusually drowsy or confused Reduced urine output or extreme thirst Fever of 100.4 F (38 C) oral or higher that does not get better with fever medication Ondansetron Hydrochloride Oral tablet What is this medicine? ONDANSETRON (on VERA se radha) is used to treat nausea and vomiting caused by chemotherapy. It is also used to prevent or treat nausea and vomiting after surgery. How should I use this medicine? Take this medicine by mouth with a glass of water. Follow the directions on your prescription label. Take your doses at regular intervals. Do not take your medicine more often than directed. Talk to your respiratory care specialist regarding the use of this medicine in children. Special care may be needed. What side effects may I notice from receiving this medicine? Side effects that you should report to your doctor or health career development associate as soon as possible: allergic reactions like skin rash, itching or hives, swelling of the face, lips or tongue breathing problems dizziness fast or irregular heartbeat feeling faint or lightheaded, falls fever and chills swelling of the hands or feet tightness in the chest Side effects that usually do not require medical attention (report to your doctor or health career development associate if they continue or are bothersome): constipation or diarrhea headache What may interact with this medicine? Do not take this medicine with any of the following medications: -apomorphine -cisapride -dofetilide -dronedarone -pimozide -thioridazine -ziprasidone This medicine may also interact with the following medications: -carbamazepine -phenytoin -rifampicin -tramadol -other medicines that prolong the QT interval (cause an abnormal heart rhythm) What if I miss a dose? If you miss a dose, take it as soon as you can. If it is almost time for your next dose, take only that dose. Do not take double or extra doses. Where should I keep my medicine? Keep out of the reach of children. Store between 2 and 30 degrees C (36 and 86 degrees F). Throw away any unused medicine after the expiration date. What should I tell my health care provider before I take this medicine? They need to know if you have any of these conditions: heart disease history of irregular heartbeat liver disease low levels of magnesium or potassium in the blood an unusual or allergic reaction to ondansetron, granisetron, other medicines, foods, dyes, or preservatives or trying to get breast-feeding What should I watch for while using this medicine? Check with your doctor or health career development associate right away if you have any sign of an allergic reaction. You have been given the following additional information: Alcohol Withdrawal Dehydration (Adult) Ondansetron Hydrochloride Oral tablet Do not work today. (Electronically signed by Karen Ortega P.A.-C 11/17/2016 16:40)
--- NOTE | 2016-11-17 16:41 | ED MED RECONCILIATION SUMMARY ---
Patient: ANDREW BERGMAN Medication Reconciliation Report [facility] VisitID: [id number] [address] [place] [address] 31y, F Registration Date/Time: 11/17/2016 Weight: 81.6 kg Height/Length: 67 in. BMI: 28.2 ALLERGIES: No Known Drug Allergy The patient's Home Medications are listed below: NONE. The source(s) of the original Home Medication information: patient The following Medications were given to the patient in the Emergency Department: IV NS IV Fluids bolus 0, then 999 mL/hr, administered: 11/17/2016 1:40:00 PM Zofran [IVP] IVP 4 mg, administered: 11/17/2016 1:59:00 PM Ativan [IVP] IVP 1 mg, administered: 11/17/2016 4:09:00 PM The following Medications were prescribed to the patient: Zofran (orally disintegrating tablets) 4 mg: take 1 orally every 6 hours for 3 days as needed for nausea. Dispense ten (10). No refill. Substitution is permissible. -- Karen Ortega, P.A.-C Librium 10 mg: take 1 orally every 8 hours for 3 days as needed for anxiety. Dispense ten (10). No refill. Substitution is permissible. -- Karen Ortega, P.A.-C
--- NOTE | 2016-11-17 16:41 | ED MED RECONCILIATION SUMMARY ---
Patient: ANDREW BERGMAN Medication Reconciliation Report [facility] VisitID: [id number] [address] [place] [address] 31y, F Registration Date/Time: 11/17/2016 Weight: 81.6 kg Height/Length: 67 in. BMI: 28.2 ALLERGIES: No Known Drug Allergy The patient's Home Medications are listed below: NONE. The source(s) of the original Home Medication information: patient The following Medications were given to the patient in the Emergency Department: IV NS IV Fluids bolus 0, then 999 mL/hr, administered: 11/17/2016 1:40:00 PM Zofran [IVP] IVP 4 mg, administered: 11/17/2016 1:59:00 PM Ativan [IVP] IVP 1 mg, administered: 11/17/2016 4:09:00 PM The following Medications were prescribed to the patient: Zofran (orally disintegrating tablets) 4 mg: take 1 orally every 6 hours for 3 days as needed for nausea. Dispense ten (10). No refill. Substitution is permissible. -- Karen Ortega, P.A.-C Librium 10 mg: take 1 orally every 8 hours for 3 days as needed for anxiety. Dispense ten (10). No refill. Substitution is permissible. -- Karen Ortega, P.A.-C
--- NOTE | 2016-11-17 16:41 | ED MAR SUMMARY ---
..... Medication Administration Record Located Within [facility] [address] [place] [address] Patient: ANDREW BERGMAN Visit ID: [id number] 31y, F Weight: 81.6 kg Height/Length: 67 in BMI: 28.2 ALLERGIES: No Known Drug Allergy Start 13:40 11/17/2016 Julissa Pastrana R.N., Stop 14:40 11/17/2016 Julissa Pastrana R.N. Medication Administered: IV NS (SALINE), Dose: IV Fluids over 1 hour(s), Rate: 999 mL/hr, Dispensed: 1000 mL bag, Site: #1 left AC. Medication Ordered: IV NS : initial bolus 1000 mL (1000 mL/hr), then 1000 mL/hr for X1 (NOW); Elie. Given 13:59 11/17/2016 Julissa Pastrana R.N. Medication Administered: ZOFRAN [IVP] (ONDANSETRON HCL), Dose: 4 mg IVP over 1 minute(s), Site: #1 left AC. Medication Ordered: Zofran IV 4 mg (NOW). Given 16:09 11/17/2016 Julissa Pastrana R.N. Medication Administered: ATIVAN [IVP] (LORAZEPAM), Dose: 1 mg IVP over 1 minute(s), Site: #1 left AC. Medication Ordered: Ativan IV 1 mg (HIGH ALERT MEDICATION, NOW).
--- NOTE | 2016-11-17 16:41 | ED DISCHARGE INSTRUCTIONS ---
Patient: ANDREW BERGMAN General Instructions [facility] VisitID: [id number] [address] [place] [address] 31y, F Registration Date/Time: 11/17/2016 Mild dehydration Elevated LFT. INSTRUCTIONS Do not work today. Warnings: Further evaluation is necessary. Prescription Medications: Zofran (orally disintegrating tablets) 4 mg: take 1 orally every 6 hours for 3 days as needed for nausea. Dispense ten (10). No refill. Substitution is permissible. Librium 10 mg: take 1 orally every 8 hours for 3 days as needed for anxiety. Dispense ten (10). No refill. Substitution is permissible. ADDITIONAL INFORMATION Alcohol Withdrawal Alcohol withdrawal symptoms occur if you have been drinking steadily for at least several days, and your body gets used to the effect of alcohol. When you suddenly stop drinking (or, even just cut down your daily intake but continue to drink), you may develop alcohol withdrawal, also called the The usual symptoms last 3-4 days and include nervousness, shakiness, nausea, sweating, sleeplessness. In severe cases hallucinations (seeing things that are not there) and seizures can occur. Home Care: You will need plenty of rest and fluids over the next several days. Eat regular meals. Of course, do not drink any more alcohol. During this time, it is best that you stay with family or friends who can help and support you. You can also admit yourself to a residential detox program. Do not drive until all symptoms are gone and you are feeling better. If you were given sedative medication to reduce your symptoms, do not take it more often than prescribed and never take it with alcohol. Follow Up: Once you have gone through the withdrawal symptoms, you have fought half of the mckeon. To avoid the risk of returning to your previous drinking pattern, it is essential that you get follow-up support and treatment. Alcoholics Anonymous offers support through a self-help fellowship. There are no dues or fees. See the Yellow Pages and call for time and place of meetings. www.aa.org [employer]-Anon offers support to families of alcohol users. 641.823.8225 www.al-anon.org [employer] [place] On Alcoholism And Drug Dependence 427-604-5643 www.ncadd.org Residential alcohol detox programs are available. Check the Yellow Pages under Drug Abuse & Treatment Centers. Get Prompt Medical Attention if any of the following occur: Severe shakiness Hallucinations Seizure Fever over 100.5 F (38.0 C) oral Headache, confusion, extreme drowsiness, inability to awaken Increasing upper abdominal pain Repeated vomiting or vomiting blood Dehydration (Adult) Dehydration occurs when your body loses too much fluid. This may be the result of vomiting a lot or from diarrhea,sweating a lot, or a high fever. It may also happen if you dont drink enough fluid when youre sick. Misuse of diuretics (water pills) can also be a cause. Symptoms include thirst and feeling dizzy, weak, fatigued, or very drowsy. The diet described below is usually enough to treat most cases. Sometimes you may needmedicine. Home Care Follow these guidelines for home care: Drink at least 12 8-ounce glasses of fluid every day to overcome the dehydration. Fluid may include water; orange juice; lemonade; apple, grape, and cranberry juice; clear fruit drinks; electrolyte replacement and sports drinks; and teas and coffee without caffeine. If you have been diagnosed with a kidney disease, ask your doctor how much and what types of fluids you should drink to prevent dehydration. If you have kidney disease, drinking too much fluid can cause it build up in the your body and be dangerous to your health. If you have fever, muscle aching, or headache from a viral syndrome, you may useacetaminophen or ibuprofen, unless another medicine was prescribed for this.If you have chronic liver or kidney disease or ever had a stomach ulcer or GI bleeding, talk with your doctor before using these medicines. Don't take aspirin if you are younger than 18 and are ill with a fever.Aspirin raises the chance forsevere liver injury. Follow-up care Follow up with your health care provider if you don't get better in the next 24 to 48 hours. When to seek medical care Get prompt medical attention if any of theseoccur: Continued vomiting (cant keep liquids down) Frequent diarrhea (more than 5 times a day); blood (red or black color) or mucus in diarrhea Blood in vomit or stool Swollen abdomen or increasing abdominal pain Weakness, dizziness, or fainting Unusually drowsy or confused Reduced urine output or extreme thirst Fever of 100.4 F (38 C) oral or higher that does not get better with fever medication Ondansetron Hydrochloride Oral tablet What is this medicine? ONDANSETRON (on VERA se radha) is used to treat nausea and vomiting caused by chemotherapy. It is also used to prevent or treat nausea and vomiting after surgery. How should I use this medicine? Take this medicine by mouth with a glass of water. Follow the directions on your prescription label. Take your doses at regular intervals. Do not take your medicine more often than directed. Talk to your compliance coordinator regarding the use of this medicine in children. Special care may be needed. What side effects may I notice from receiving this medicine? Side effects that you should report to your doctor or health resident care aid as soon as possible: allergic reactions like skin rash, itching or hives, swelling of the face, lips or tongue breathing problems dizziness fast or irregular heartbeat feeling faint or lightheaded, falls fever and chills swelling of the hands or feet tightness in the chest Side effects that usually do not require medical attention (report to your doctor or health resident care aid if they continue or are bothersome): constipation or diarrhea headache What may interact with this medicine? Do not take this medicine with any of the following medications: -apomorphine -cisapride -dofetilide -dronedarone -pimozide -thioridazine -ziprasidone This medicine may also interact with the following medications: -carbamazepine -phenytoin -rifampicin -tramadol -other medicines that prolong the QT interval (cause an abnormal heart rhythm) What if I miss a dose? If you miss a dose, take it as soon as you can. If it is almost time for your next dose, take only that dose. Do not take double or extra doses. Where should I keep my medicine? Keep out of the reach of children. Store between 2 and 30 degrees C (36 and 86 degrees F). Throw away any unused medicine after the expiration date. What should I tell my health care provider before I take this medicine? They need to know if you have any of these conditions: heart disease history of irregular heartbeat liver disease low levels of magnesium or potassium in the blood an unusual or allergic reaction to ondansetron, granisetron, other medicines, foods, dyes, or preservatives or trying to get breast-feeding What should I watch for while using this medicine? Check with your doctor or health resident care aid right away if you have any sign of an allergic reaction. You have been given the following additional information: Alcohol Withdrawal Dehydration (Adult) Ondansetron Hydrochloride Oral tablet Do not work today. (Electronically signed by Karen Ortega P.A.-C 11/17/2016 16:40)
--- NOTE | 2016-11-17 16:41 | ED MAR SUMMARY ---
..... Medication Administration Record [facility] [address] [place] [address] Patient: ANDREW BERGMAN Visit ID: [id number] 31y, F Weight: 81.6 kg Height/Length: 67 in BMI: 28.2 ALLERGIES: No Known Drug Allergy Start 13:40 11/17/2016 Julissa Pastrana R.N., Stop 14:40 11/17/2016 Julissa Pastrana R.N. Medication Administered: IV NS (SALINE), Dose: IV Fluids over 1 hour(s), Rate: 999 mL/hr, Dispensed: 1000 mL bag, Site: #1 left AC. Medication Ordered: IV NS : initial bolus 1000 mL (1000 mL/hr), then 1000 mL/hr for X1 (NOW); Elie. Given 13:59 11/17/2016 Julissa Pastrana R.N. Medication Administered: ZOFRAN [IVP] (ONDANSETRON HCL), Dose: 4 mg IVP over 1 minute(s), Site: #1 left AC. Medication Ordered: Zofran IV 4 mg (NOW). Given 16:09 11/17/2016 Julissa Pastrana R.N. Medication Administered: ATIVAN [IVP] (LORAZEPAM), Dose: 1 mg IVP over 1 minute(s), Site: #1 left AC. Medication Ordered: Ativan IV 1 mg (HIGH ALERT MEDICATION, NOW).
== END 2016-11-17 16:25 | disposition home or self-care (01) ==
LOC: ED SRH 13:26
DX: E86.0 Dehydration (principal); R79.89 Other specified abnormal findings of blood chemistry
CPT/HCPCS: 90004; 90100; 92010; 92235; 92760; 92761; 92762; 92763; 92764; 92765; 92766; 92767; 93070; 95059